=== PATIENT | female | born 1950 | race Two or more races ===

== ENCOUNTER 2024-07-19 18:57 | Emergency (ER) | payer MEDICARE, MEDICAID, SELFPAY ==
[2024-07-19 19:01] VITALS: BP 197/82; PULSE 77; RESP 19; TEMP 36.6; O2SAT 98; BMI 25.4
--- NOTE | 2024-07-19 19:16 | XR_ITS ---
Examination: AP chest single view Technique: AP portable semiupright chest single view Exam date and time: July 19, 20242010 hrs. Comparison July 10, 2024 Indications: Preop Findings: The film is rotated RPO Mild prominence cardiac contour Moderate ectasia thoracic aorta No pneumonia or pulmonary edema Prominent osteopenia Impression: No active disease
--- NOTE | 2024-07-19 19:16 | EKG_ITS ---
[facility] Test Date: 2024-07-19 Pat Name: KEYANA VALENCIA Department: Room: - Gender: Female Bundle Person: : 1950 Requested By: Santosh Clemons Order Number: [id number] Reading MD: Santosh Clemons Measurements Intervals Zoe Rate: 78 P: 55 CT: 181 QRS: 29 QRSD: 78 T: 70 QT: 398 QTc: 453 Interpretive Statements SINUS RHYTHM MODERATE ST DEPRESSION [0.05+ mV ST DEPRESSION] Compared to ECG 07/10/2024 21:04:12 No significant changes /store/S0/[id number].pdf
--- NOTE | 2024-07-19 19:16 | XR_ITS ---
Examination:Left hip AP, lateral, AP pelvis 3 views Technique: Hip AP lateral, AP pelvis, 3 views Exam date and time:July 19, 20242006 hrs. Indications: Patient fell today with injury to left hip, left hip pain Findings: Subtle sclerosis about the left subcapital region Right hip bones of the pelvis intact Impression: Recommend CT scan pelvis left hip follow-up to exclude left subcapital hip fracture.
--- NOTE | 2024-07-19 19:18 | XR_ITS ---
Examination: CT brain head without contrast. 2-D sagittal coronal reconstructions Date and time of exam:July 19, 2024 2044 hrs. Indications: Headache nausea today post ground-level fall CTDI: vol (mGy):47.6 DLP: (mGycm):989 Technique: Multiple CT axial sections of the brain have been obtained, 5 mm slice thickness. Contrast has not been administered. 2-D sagittal, coronal reconstructions have been obtained Low dose protocols were performed. One or more of the following dose reduction techniques were used; automated exposure control, adjustment of the mA and/or KV according to patient size, use of iterative reconstruction technique. Findings: No significant ventricular enlargement. 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 No mass effect or midline shift Basal cisterns are not remarkable. Fourth ventricle is midline. Cranial vault intact. Impression: Negative for acute hemorrhage, mass effect or midline shift
--- NOTE | 2024-07-19 19:18 | XR_ITS ---
Examination: CT cervical spine without contrast 2-D sagittal reconstructions 2-D coronal reconstructions 3-D reconstructions. Exam date and time:July 19, 2024 0846 hrs. Indications: Ground-level fall today with injury to the neck, neck pain CTDI:vol (mGy) 12.3 DLP: (mGycm) 282 Technique: Multiple 2 mm axial sections of the cervical spine have been obtained. The coronal and sagittal reconstructions have been obtained. 3-D reconstructions have been obtained. Low dose protocols were performed. One or more of the following dose reduction techniques were used; automated exposure control, adjustment of the mA and/or KV according to patient size, use of iterative reconstruction technique. Findings: Axial sections demonstrate intact base of the skull. C1 exhibit satisfactory relationship to the odontoid. No acute cervical vertebral body fracture seen. Alignment posterior spinous processes satisfactory. Abnormal sclerosis replacing the C3 vertebral body Impression: No acute cervical fracture. 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
--- NOTE | 2024-07-19 19:19 | EDNOTE_ITS ---
ED General RME/HPI General Chief complaint: Fall Stated complaint: LEFT BUTT CHEEK PAIN Time Seen by Provider: 07/19/24 19:16 Arrival date/time: 07/19/24 18:57 CC: Left hip pain HPI patient was backing up while in her garden and fell, causing immediate pain to the left hip. Patient is a history of diabetes hypertension takes a baby aspirin. Patient denies LOC or or ALOC. EMS reports stable vital signs and route unable to weight-bear on the left hip. Related Data Home Medications ?Medication ?Instructions ?Recorded ?Confirmed glipizide 5 mg tablet 10 mg PO QDAY #0 tabs 06/18/16 04/03/24 metoprolol succinate 25 mg capsule 25 mg PO QDAY 08/07/21 04/03/24 sprinkle, ext. release 24 hr aspirin 81 mg tablet,delayed 81 mg PO DAILY 12/20/21 04/03/24 release dulaglutide 0.75 mg/0.5 mL 0.75 mg subcut QWEEK 08/14/23 04/03/24 subcutaneous pen injector (Trulicity) gabapentin 100 mg capsule 300 mg PO Q8H 08/14/23 04/03/24 metformin 1,000 mg tablet,extended 750 mg PO QDAY 08/14/23 04/03/24 release 24hr (osmotic) omeprazole 40 mg capsule,delayed 40 mg PO QDAY 08/14/23 04/03/24 release apixaban 5 mg tablet (Eliquis) 5 mg PO QDAY 04/03/24 04/03/24 meclizine 25 mg tablet 25 mg PO BID PRN Dizziness Or 04/03/24 04/03/24 Vertigo pregabalin 25 mg capsule 25 mg PO TID 04/03/24 04/03/24 tobramycin 0.3 % eye drops 1 drp ophthalmic (eye) BID 04/03/24 04/03/24 Previous Rx's ?Medication ?Instructions ?Recorded amlodipine 10 mg tablet 10 mg PO QDAY #30 tabs 08/15/23 atorvastatin 40 mg tablet 40 mg PO QPM #30 tabs 08/15/23 lisinopril 40 mg tablet 40 mg PO QDAY 30 days #30 tabs 08/15/23 lidocaine 5 % topical patch 1 patch topical QDAY #15 ea 07/20/24 (Lidoderm) Allergies Allergy/AdvReac Type Severity Reaction Status Date / Time zolpidem AdvReac Severe I PASS Verified 08/13/23 18:57 OUT codeine AdvReac Mild NIGHTMARES Verified 08/13/23 18:57 Review of Systems Review of Systems Narrative Review of Systems: GEN: No fever, no chills, no weight loss EYES: No discharge, no visual changes, no pain HEENT: No ear pain, no congestion, no sore throat PULM: No shortness of breath, no cough, no congestion CV: No chest pain, no dyspnea on exertion, no palpitations GI: No nausea, no vomiting, no diarrhea, no pain, no constipation : No frequency, no urgency, no dysuria MUSC/SKEL: + joint pain, no back pain SKIN: No rash PSYCH: No hallucinations, no depression HEME/LYMPH: No easy bleeding or bruising tendencies NEURO: No weakness, no headache Past Medical History Past Medical History NEUROLOGIC: Positive Neurological Disorders and Cerebrovascular Accident CARDIAC: Positive Cardiac Disorders, Coronary Artery Disease, Hypercholesterolemia and Hypertension; Negative Congestive Heart Failure RESPIRATORY: Negative Chronic Obstructive Pulmonary Disease (COPD) GASTROINTESTINAL: Negative Gastrointestinal Disorders GENITOURINARY: Negative Genitourinary Disorders or Renal Disease ENDOCRINE: Positive Endocrine Disorders and Diabetes Mellitus Type 2; Negative Diabetes Mellitus Type 1 OTHER HISTORY: Positive Hospitalization and Falls; Negative Autoimmune Disease, Down Syndrome, Developmental Delay, MRSA, Clostridium Difficile or Cancer Family History FAMILY HISTORY: Positive Family Cardiac Disorders (sister heart disease); Negative Family Respiratory Disorders, Family Gastrointestinal Problems or Family Cancer Surgical History SURGICAL: Positive Coronary Stent Social History SMOKING STATUS: Never smoker SECOND HAND EXPOSURE: No ED Exam Narrative Physical exam: [General: Obese in moderate discomfort but not in any acute distress Head normocephalic, no step-offs hematomas induration ulcerations HEENT: Eyes: Pupils are PERRLA EOMs are intact no trapping, nose: No epistaxis rhinorrhea Mouth pink moist membranes uvula is midline. All the subsystems of HEENT are within acceptable limits Neck is supple nontender no tenderness with palpation full range of motion flexion extension and rotation. Chest equal chest rise nontender to palpation Respiratory: Clear to auscultation no wheezes crackles or rubs CV: Rate rhythm is regular no murmurs rubs or clicks Abdomen is distended secondary to body habitus soft nontender no masses positive bowel sounds all 4 quadrants Back: No CVA tenderness no spinous process tenderness from cervical spine thoracic and lumbar spine Skin: Intact no petechiae rash induration ulceration or crepitus Extremities: Tenderness with lateral palpation of the left hip no obvious extremity shortening. Moving all other extremities against resistance cap refill less than 2 seconds neurosensory intact Neuro: Awake alert oriented x3 Glascow coma 15 no focal deficits] Course Course Course Narrative: Reexamination of the patient at 2151, the patient continues to have left hip pain. Patient is unable to raise leg without significant pain I suspect a subcapital fracture that is not visible on plain film will follow-up with a CT. Quality Measures VTE prophylaxis Orders Category Date Time Status EKG (ED ONLY) *Do not use* NOW Care 07/19/24 19:16 Completed Saline [Insert IV] NOW Care 07/19/24 19:[address] cervical spine wo con Stat Exams 07/19/24 19:[address] head/brain wo con Stat Exams 07/19/24 19:[address] pelvis wo con Stat Exams 07/19/24 21:50 Completed EKG (ED Only) Stat Exams 07/19/24 19:16 Draft XR chest 1V Stat Exams 07/19/24 19:16 Completed XR hip LT w pelvis 2-3V Stat Exams 07/19/24 19:16 Completed B-Type Natriuretic Peptide Stat Lab 07/19/24 19:50 Completed CBC Stat Lab 07/19/24 19:50 Completed Comprehensive Metabolic Panel Stat Lab 07/19/24 19:50 Completed LDH (Lactate Dehydrogenase) Stat Lab 07/19/24 19:50 Completed Magnesium Stat Lab 07/19/24 19:50 Completed Partial Thromboplastin Time Stat Lab 07/19/24 19:50 Completed Prothrombin Time with INR Stat Lab 07/19/24 19:50 Completed Troponin I Stat Lab 07/19/24 19:50 Completed Acetaminophen Tab [Tylenol Tab] Med 07/20/24 00:17 Discontinued 650 mg PO X1 ONE Ketorolac Inj [Toradol Inj] Med 07/20/24 00:17 Discontinued 15 mg IVP X1 ONE Lidocaine 5% Patch Med 07/20/24 01:03 Discontinued 1 patch TOP X1 ONE Ondansetron Inj [Zofran Inj] Med 07/19/24 19:16 Discontinued 4 mg IV X1 ONE Sodium Chloride 0.9% 1000 ml [Ns] 1,000 ml Med 07/19/24 19:18 Discontinued IV 65 mls/hr fentaNYL INJ [Sublimaze Inj] Med 07/19/24 19:16 Discontinued 50 mcg IV X1 ONE Vital Signs Vital signs: Vital Signs Temperature 97.9 F 07/19/24 19:01 Pulse Rate 77 07/19/24 19:01 Respiratory Rate 19 07/19/24 19:01 Blood Pressure 197/82 H 07/19/24 19:01 Pulse Oximetry (%) 98 07/19/24 19:01 Oxygen Delivery Method Room Air 07/19/24 19:01 [facility] Patient data External records reviewed:: [facility] previous records and EMS form Clinical information provided by:: patient and EMS Social determinants that could affect healthcare access:: none Patient has the following chronic illnesses:: Solution How is presenting disease/condition affected by chronic disease/condition?: u neffected by Evaluation data The following diagnostics were reviewed and interpreted by me:: lab results, radiology exam(s) and EKG tracing(s) Lab and/or radiology exams considered but not ordered:: EKG performed at 1958 shows ventricular rate of 78 CA interval 1481 QRS S at 78 QTc of 431 this is sinus rhythm when compared to an old EKG of May 12, 2024 there are no significant changes. Interpretation Summary: CBC shows no acute leukocytosis anemia thrombocytopenia CMP shows no electrolyte imbalances renal impairment transaminitis or T. bili elevation CT of the hip is negative Urine is negative Medications Medications considered but not ordered:: None Medication administrations:: Medication Administration History Discontinued Medications Acetaminophen (Acetaminophen 325 Mg Tablet) 650 mg PO X1 ONE Stop: 07/20/24 00:18 Last Admin: 07/20/24 00:30 Dose: 650 mg Documented By: CCT Fentanyl Citrate (Fentanyl Cit Inj 50 Mcg/Ml Amp 2ml) 50 mcg IV X1 ONE Stop: 07/19/24 19:17 Last Admin: 07/19/24 19:58 Dose: 50 mcg Documented By: CCT Sodium Chloride (Ns) 1,000 mls @ 65 mls/hr IV .[id number] Stop: 08/18/24 19:17 Last Admin: 07/19/24 21:04 Dose: 65 mls/hr Documented By: CCT Ketorolac Tromethamine (Ketorolac Inj 30 Mg/Ml Vial) 15 mg IVP X1 ONE Stop: 07/20/24 00:18 Last Admin: 07/20/24 00:30 Dose: 15 mg Documented By: CCT Lidocaine (Lidocaine 5% 1 Patch) 1 patch TOP X1 ONE Stop: 07/20/24 01:04 Last Admin: 07/20/24 01:08 Dose: 1 patch Documented By: CCT Ondansetron HCl (Ondansetron Inj 2 Mg/Ml Inj 2 Ml) 4 mg IV X1 ONE; Protocol Stop: 07/19/24 19:17 Last Admin: 07/19/24 19:57 Dose: 4 mg Documented By: CCT None Consultations Consultation(s) initiated? (list below): Yes Consultation #1 (Physician, Specialty, Details): Yoko Diagnosis Differential Diagnosis ED Complaint MDM: Left hip fracture acetabular fracture femur fracture Most likely diagnosis given after review of the tests above:: Impacted subcapital fracture Admission Indicated Admission indicated?: indicated Explain why admission is indicated or not indicated:: Require surgical intervention Admission Request Was there a request for admission?: No Disposition Plan Disposition Plan: Admit Medical Decision Making Differential Diagnosis Differential Diagnosis: Left hip fracture acetabular fracture femur fracture Lab Data 07/19/24 19:50 07/19/24 19:50 Labs: Lab Results 07/19/24 Range/Units 19:50 WBC 14.7 H (3.6-11.0) Thou/mm3 RBC 4.68 (4.00-5.20) Miln/mm3 Hgb 12.2 (12.0-16.0) g/dL Hct 36.1 (36.0-46.0) % MCV 77 L (80-100) fL MCH 26.1 (25.0-35.0) pg MCHC 33.8 (31.0-37.0) g/dl RDW Std Deviation 38.0 (36.4-46.3) fL Plt Count 284 D (140-440) Thou/mm3 Neut % (Auto) 69 (37-80) % Lymph % (Auto) 22 (10-50) % Cooper % (Auto) 6 (0-12) % Eos % (Auto) 1 (0-10) % Baso % (Auto) 1 (0-2.5) % Neut # (Auto) 10.2 H (1.8-7.7) Thou/mm3 Lymph # (Auto) 3.2 (1.0-4.8) Thou/mm3 Cooper # (Auto) 0.9 H (0.0-0.8) Thou/mm3 Eos # (Auto) 0.2 (0.0-0.5) Thou/mm3 Baso # (Auto) 0.1 (0.0-0.2) Thou/mm3 Immature Gran # (Auto) 0.15 H (0.00-0.00) Thou/mm3 Absolute Nucleated RBC 0.00 (0.00-0.00) Thou/mm3 Immature Gran % 1 H (0-0) % Nucleated RBC % 0 (0) /100 WBC PT 10.6 (9.0-12.2) Seconds INR 1.0 (0.9-1.3) APTT 23.8 (22.0-36.0) Seconds Sodium 132 L (136-145) mMol/L Potassium 3.9 (3.4-5.1) mMol/L Chloride 101 (98-107) mMol/L Carbon Dioxide 25.3 (20.0-31.0) mMol/L Anion Gap 6 L (7-16) BUN 16 (9-23) mg/dL Creatinine 0.8 (0.6-1.3) mg/dL Estim Creat Clear Calc 50.3 L (>60) mL/min eGFR > 60 (60 - ) See Note BUN/Creatinine Ratio 20 (12-20) Ratio Glucose 225 H (74-106) mg/dL Calculated Osmolality 272 L (275-295) Calcium 9.7 (8.3-10.6) mg/dL Corrected Calcium 9.7 (8.5-10.1) mg/dL Magnesium 1.8 (1.6-2.6) mg/dL Total Bilirubin 0.3 (0.3-1.2) mg/dL AST 17 (0-34) U/L ALT 14 (10-49) U/L Alkaline Phosphatase 109 (46-116) U/L Lactate Dehydrogenase 187 (120-246) U/L Troponin I < 0.020 (0.0-0.045) ng/mL B-Natriuretic Peptide 47 (0-100) pg/mL Total Protein 7.3 (5.7-8.2) gm/dL Albumin 4.5 (3.4-4.8) gm/dL Globulin 2.8 (2.3-3.5) gm/dL Albumin/Globulin Ratio 1.6 (1.2-2.2) Discharge Plan Plan Patient Disposition: HOME (Self Care) Prescriptions/Referrals Prescriptions/Med Rec: New lidocaine [Lidoderm] 5 % adhesive patch,medicated 1 patch topical QDAY Qty: 15 0RF Rx Instructions: leave on most painful area for up to 12 hrs No Action glipizide 5 MG tablet 10 mg PO QDAY Qty: 0 Rx Instructions: Take in the morning before meals metoprolol succinate 25 mg Capsule,Sprinkle,Er 24hr 25 mg PO QDAY aspirin 81 mg Tablet,Delayed Release (Dr/Ec) 81 mg PO DAILY omeprazole 40 mg Capsule,Delayed Release(Dr/Ec) 40 mg PO QDAY metformin 1,000 mg Tablet Extended Release 24 Hr 750 mg PO QDAY Trulicity 0.75 mg/0.5 mL Pen Injector 0.75 mg SUBCUT QWEEK Rx Instructions: wednesdays gabapentin 100 mg Capsule 300 mg PO Q8H lisinopril 40 mg tablet 40 mg PO QDAY 30 Days Qty: 30 3RF atorvastatin 40 mg tablet 40 mg PO QPM Qty: 30 3RF amlodipine 10 mg tablet 10 mg PO QDAY Qty: 30 3RF meclizine 25 mg Tablet 25 mg PO BID PRN (Reason: Dizziness Or Vertigo) tobramycin 0.3 % Drops 1 drp OPHTHALMIC (EYE) BID pregabalin 25 mg Capsule 25 mg PO TID Eliquis 5 mg tablet 5 mg PO QDAY Referrals: No Primary/Family,Physician [Referring Provider] - In 1 week Problem List Clinical Impression: Hematoma of muscle Patient/Caregiver Discharge Instructions Education Materials: ED Hematoma Additional Instructions: You have a deep hematoma/bruise of your buttocks muscle. This will resolve on its own with time. You can use ice for the next 2 days and then changed to warm compresses. Topical pain patches have been prescribed at the pharmacy for you. Follow-up with your primary care doctor in 2 to 3 days for recheck. You can return to the emergency department sooner symptoms worsen or if you notice any new, concerning issues. Print Language: Korean Stand Alone Forms: Janet Award Info., Patient Portal Info Letter
[2024-07-19 19:45] VITALS: PULSE 83; O2SAT 97
[2024-07-19] MEDS: ONDANSETRON INJ 2 MG/ML INJ 2 ML 4 MG IV (19:57)
[2024-07-19] MEDS: fentaNYL CIT INJ 50 mCg/ML AMP 2ML IV (19:58)
[2024-07-19 20:19] LABS: Basophils # (Auto) 0.1 Thou/mm3 (0.0-0.2); Basophils % (Auto) 1 % (0-2.5); Eosinophils # (Auto) 0.2 Thou/mm3 (0.0-0.5); Eosinophils % (Auto) 1 % (0-10); Hematocrit 36.1 % (36.0-46.0); Hemoglobin 12.2 g/dL (12.0-16.0); Immature Granulocytes % (Auto) 1 % (0-0); Immature Granulocytes Auto 0.15 Thou/mm3 (0.00-0.00); Lymphocytes # (Auto) 3.2 Thou/mm3 (1.0-4.8); Lymphocytes % (Auto) 22 % (10-50); Mean Corpuscular HGB Conc 33.8 g/dl (31.0-37.0); Mean Corpuscular Hemoglobin 26.1 pg (25.0-35.0); Mean Corpuscular Volume 77 fL (80-100); Monocytes # (Auto) 0.9 Thou/mm3 (0.0-0.8); Monocytes % (Auto) 6 % (0-12); Neutrophils # (Auto) 10.2 Thou/mm3 (1.8-7.7); Neutrophils % (Auto) 69 % (37-80); Nucleated Red Blood Cell % 0 /100 WBC (0); Platelet Count 284 Thou/mm3 (140-440); Red Blood Count 4.68 Miln/mm3 (4.00-5.20); White Blood Count 14.7 Thou/mm3 (3.6-11.0)
[2024-07-19 20:35] LABS: Partial Thromboplastin Time 23.8 Seconds (22.0-36.0); Prothrombin Time 10.6 Seconds (9.0-12.2)
[2024-07-19 20:40] LABS: B-Type Natriuretic Peptide 47 pg/mL (0-100)
[2024-07-19 20:41] LABS: Alanine Aminotransferase 14 U/L (10-49); Albumin, Serum 4.5 gm/dL (3.4-4.8); Albumin/Globulin Ratio 1.6 (1.2-2.2); Alkaline Phosphatase 109 U/L (46-116); Anion Gap 6 (7-16); Aspartate Amino Transferase 17 U/L (0-34); BUN/Creatinine Ratio 20 Ratio (12-20); Bilirubin,Total 0.3 mg/dL (0.3-1.2); Blood Urea Nitrogen 16 mg/dL (9-23); Calcium 9.7 mg/dL (8.3-10.6); Calcium (Corrected) 9.7 mg/dL (8.5-10.1); Carbon Dioxide 25.3 mMol/L (20.0-31.0); Chloride 101 mMol/L (98-107); Creatinine (Component) 0.8 mg/dL (0.6-1.3); Estimated Creatinine Clearance 50.3 mL/min (>60); Globulin 2.8 gm/dL (2.3-3.5); Glucose 225 mg/dL (74-106); LDH (Lactate Dehydrogenase) 187 U/L (120-246); Magnesium 1.8 mg/dL (1.6-2.6); Osmolality,Calculated 272 (275-295); Potassium 3.9 mMol/L (3.4-5.1); Sodium 132 mMol/L (136-145); Total Protein 7.3 gm/dL (5.7-8.2); Troponin I < 0.020 ng/mL (0.0-0.045); eGFR > 60 See Note
[2024-07-19] MEDS: SODIUM CHLORIDE 0.9% 1000 ML 1,000 ML 65 ML IV (21:04)
[2024-07-19 21:10] VITALS: BP 186/69; PULSE 75; RESP 18; TEMP 36.8; O2SAT 94
--- NOTE | 2024-07-19 21:50 | XR_ITS ---
Examination: CT pelvis without intravenous contrast. 2-D sagittal and coronal reconstructions. Date and time of exam:July 19, 2024 11:51 PM Indications: Onset left hip pain today, patient fell today with injury to the left hip CTDI: vol (mGy) :5.93 DLP: (mGycm) : 211 Technique: Multiple 3 mm axial sections of the pelvis have been obtained with the 64 slice high resolution scanner. 2-D sagittal and coronal reconstructions. Low dose protocols were performed. One or more of the following dose reduction techniques were used; automated exposure control, adjustment of the mA and/or KV according to patient size, use of iterative reconstruction technique. Findings: Heavy vascular calcification Intact urinary bladder No free fluid in the pelvis No acute fracture Hematoma intramuscular, gluteal on the left, 4.7 x 3.1 x 7.1 cm Impression: Intramuscular left gluteal hematoma 4.7 x 3.1 x 7.1 cm No acute hip fracture depicted If left hip pain persists, recommend MRI left hip without contrast follow-up
--- NOTE | 2024-07-19 23:11 | PD.EDADDENDU ---
Emergency Room Addendum Addendum Narrative: 2300: Care assumed from Santosh Luther NP, the previous shift emergency physician. Past medical, surgical, social and family history reviewed. Vitals and home medications reviewed. I will assume the care of the patient at this time, pending . Please refer to the emergency department record for history and examination from initial visit. Physical exam by me shows she has a noticeable large ecchymosis/hematoma over her left gluteus, she has no pain upon palpation of her left hip joint. I placed ice over the hematoma and a Lidoderm patch. She was able to ambulate in the emergency department with mild limitation due to pain. She'?ll be discharged conservative for gluteal hematoma. Reviewed all results, analysis, treatment plan and patient is amenable discharge. Strict return precautions reviewed and patient was discharged stable condition. MD Attestation MD Attestation Scribe Attestation: I, Jamal Iqbal, am scribing for and in the presence of Dr. Wilcox. Provider Notation: Although this document has been carefully reviewed, there may still be some phonetic and other typographical errors. These errors are purely grammatical due to imperfections in the software program and should not be construed in any way to compromise the substance of the patient's medical care during this visit.
[2024-07-20] MEDS: ACETAMINOPHEN 325 MG TABLET 650 MG PO (00:30)
[2024-07-20] MEDS: KETOROLAC INJ 30 MG/ML VIAL 15 MG IVP (00:30)
[2024-07-20 00:35] VITALS: BP 161/67; PULSE 87; RESP 18; TEMP 36.9; O2SAT 95
[2024-07-20] MEDS: LIDOCAINE 5% 1 PATCH TOP (01:08)
--- NOTE | 2024-07-20 01:19 | PRELIM_ITS ---
CT scan of the pelvis without intravenous contrast. Axial sections with sagittal and coronal reformat s were obtained. July 19, 2024 at 2351 hoursClinical History: Left hip pain.Comparison: No prior study is available for comparison. Findings:There is no fracture or malalignment. No joint effusion i s seen. Diverticulosis of the colon.Status post hysterectomy.Fecal loading.Vascular calcifications.Le ft gluteal intramuscular hematoma, measuring 5.9 x 3.6 x 6.1 cm.Impression:No fracture or dislocation .Left gluteal intramuscular hematoma. Report Electronically Signed By: Simon Wiley 07/20/2024 1: 18:26 AM [EST]
--- NOTE | 2024-07-20 01:50 | PC.NURSE ---
Pt able to get out bed with assist, was able to walk from [facility] to the entrance of room with 1 person assist. Pt states she does use a walker at home. Dr. Wilcox made aware. Per Md, will discharge home.
[2024-07-20 02:25] VITALS: BP 162/63; PULSE 82; RESP 19; TEMP 36.7; O2SAT 95
== END 2024-07-20 02:25 | disposition home or self-care (01) ==
PROVIDERS: Registered Nurse General Practice; Emergency Provider Emergency Medicine; PCP Physician Assistant
DX: S30.0XXA Contusion of lower back and pelvis, initial encounter (principal); S19.9XXA Unspecified injury of neck, initial encounter; S79.912A Unspecified injury of left hip, initial encounter; R51.9 Headache, unspecified; R11.0 Nausea; W18.30XA Fall on same level, unspecified, initial encounter
CPT/HCPCS: 36415; 70450; 71045; 72125; 72192; 73502; 80053; 80307; 81001; 83615; 83735; 83880; 84484; 85025; 85610; 85730; 93005; 96374; 99284; J1885; J2405; J3010; J7030; A9270

== ENCOUNTER 2024-09-21 18:19 | Emergency (ER) | payer MEDICARE, MEDICAID, SELFPAY ==
[2024-09-21] VITALS (10 sets, daily range): BP systolic 153–217; BP diastolic 62–92; PULSE 66–102; RESP 13–20; TEMP 36.9; O2SAT 94–98; BMI 27.4
--- NOTE | 2024-09-21 18:26 | EKG_ITS ---
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
--- NOTE | 2024-09-21 18:47 | EDNOTE_ITS ---
ED General RME/HPI General Chief complaint: Headache Stated complaint: HEADACHE Time Seen by Provider: 09/21/24 18:32 Arrival date/time: 09/21/24 18:19 RME / HPI RME / HPI narrative: [facility] complaint: Headache, high blood pressure at home HPI: Patient is a 44-year-old female with past medical history of essential hypertension, hyperlipidemia, peripheral neuropathy, type 2 insulin-dependent diabetes, bilateral thyroid nodules, urge incontinence and bilateral severe PAD s/p peripheral angiography, who presented to the ER with new onset occipital headache 8/10 in severity, dull and achy in nature and constant. Patient's headache started around 4 PM today, and did not improve despite adequate oral hydration. She states that when she checks her blood pressure at home her systolic was >220, so she decided to call EMS. She is otherwise compliant with medications, and endorses taking all home medications today. Patient denies any fevers chills or other systemic symptoms. She does have a mild cough, but denies any shortness of breath. She does not have any cardiac symptoms, denies palpitations, and has no cardiac history. Medication list: Aspirin 81 mg Atorvastatin 40 mg Amlodipine 10 mg Lisinopril 40 mg Metoprolol XL 25 mg Glipizide 5 mg Trulicity 0.75 mg weekly Metformin 750 mg daily Gabapentin 300 mg 3 times daily 81 mg daily Omeprazole 40 mg daily Tobramycin eyedrops Past surgical history: Cholecystectomy in her 30s Allergies: Zolipem - confusion Codeine - hallucinations Social history: Marital?Status:? Tobacco?Use:?Denies ETOH?Use:?Denies Drug?Note:?Denies Social?History?Note:?Lives?at home with her family, endorses that her sons take care of Family history: Sister? pacemaker for heart block. Denies any family history of sudden cardiac or strokes. Related Data Home Medications ?Medication ?Instructions ?Recorded ?Confirmed glipizide 5 mg tablet 10 mg PO QDAY #0 tabs 06/18/16 04/03/24 metoprolol succinate 25 mg capsule 25 mg PO QDAY 08/07/21 04/03/24 sprinkle, ext. release 24 hr aspirin 81 mg tablet,delayed 81 mg PO DAILY 12/20/21 04/03/24 release dulaglutide 0.75 mg/0.5 mL 0.75 mg subcut QWEEK 08/14/23 04/03/24 subcutaneous pen injector (Trulicity) gabapentin 100 mg capsule 300 mg PO Q8H 08/14/23 04/03/24 metformin 1,000 mg tablet,extended 750 mg PO QDAY 08/14/23 04/03/24 release 24hr (osmotic) omeprazole 40 mg capsule,delayed 40 mg PO QDAY 08/14/23 04/03/24 release apixaban 5 mg tablet (Eliquis) 5 mg PO QDAY 04/03/24 04/03/24 meclizine 25 mg tablet 25 mg PO BID PRN Dizziness Or 04/03/24 04/03/24 Vertigo pregabalin 25 mg capsule 25 mg PO TID 04/03/24 04/03/24 tobramycin 0.3 % eye drops 1 drp ophthalmic (eye) BID 04/03/24 04/03/24 Previous Rx's ?Medication ?Instructions ?Recorded amlodipine 10 mg tablet 10 mg PO QDAY #30 tabs 08/15/23 atorvastatin 40 mg tablet 40 mg PO QPM #30 tabs 08/15/23 lisinopril 40 mg tablet 40 mg PO QDAY 30 days #30 tabs 08/15/23 lidocaine 5 % topical patch 1 patch topical QDAY #15 ea 07/20/24 (Lidoderm) Allergies Allergy/AdvReac Type Severity Reaction Status Date / Time zolpidem AdvReac Severe I PASS Verified 08/13/23 18:57 OUT codeine AdvReac Mild NIGHTMARES Verified 08/13/23 18:57 Review of Systems Review of Systems Narrative Review of Systems: GENERAL: Denies fevers/chills or diaphoresis. HEENT: endorses posterior headache, no visual/hearing changes. Denies nasal discharge. NEURO: Denies unusual weakness or difficulty speaking. CARDIO: Denies chest pain or palpitations. PULM: Denies SOB, coughing, or wheezing. GI: Denies abdominal pain, N/V/C/D. Reports having BMs URO: Denies burning/itching/pain/urinary changes. PANTRY ATTENDANT: Denies menstrual changes, hot flashes. MSK/EXT/SKIN: Denies joint/skeletal/muscle pain, issues/changes in upper or lower extremities, itchiness, or superficial pain. PSYCH: Cooperative, pleasant mood & affect. The rest of the review of systems is otherwise negative. ED Exam Narrative Physical exam: Constitutional Alert, oriented x4 , BP 217/92 HEENT Vision grossly intact. Patent nares. Trachea midline. Occipital tenderness/headcahe Respiratory Chest normal on inspection and clear to auscultation bilaterally. Cardiovascular S1 and S2 audible, RRR. No murmurs or carotid bruit. No gross JVD. Abdominal Soft and non tender to palpation in all quadrants. BS + Genitourinary No bladder tenderness, no flank pain. Normal to palpation. Musculoskeletal Extremities tone within normal limits. No LE edema. Neurological CN II - XII grossly intact. Extremity motor and sensation grossly intact. Skin Warm, dry and intact. No apparent lesions. Psychiatric Patient has a good affect, is cooperative. Course Quality Measures VTE prophylaxis Orders Category Date Time Status EKG (ED ONLY) *Do not use* NOW Care 09/21/24 18:26 Completed Alford [Urinary Catheter] QS Care 09/21/24 18:26 Active Insert IV NOW Care 09/21/24 18:26 Active Miscellaneous Nursing Order NOW Care 09/21/24 20:33 Active CXRP [XR chest 1V portable] Stat Exams 09/21/24 20:31 Completed EKG (ED Only) Stat Exams 09/21/24 18:26 Draft CBC Stat Lab 09/21/24 19:26 Completed CMP [Comprehensive Metabolic Panel] Stat Lab 09/21/24 19:26 Completed INR [Prothrombin Time with INR] Stat Lab 09/21/24 19:26 Completed Influenza A & B Rapid Panel Stat Lab 09/21/24 20:32 Ordered Lactic Acid [Lactate (Lactic Acid)] Stat Lab 09/21/24 20:59 Completed PTT [Partial Thromboplastin Time] Stat Lab 09/21/24 19:26 Completed Procalcitonin Stat Lab 09/21/24 20:57 Completed Urinalysis Stat Lab 09/21/24 18:26 Ordered Celecoxib [CeleBREX] Med 09/21/24 21:32 Discontinued 100 mg PO X1 ONE Labetalol IV [Trandate IV] Med 09/21/24 18:33 Discontinued 10 mg IVP X1 ONE Labetalol IV [Trandate IV] Med 09/21/24 20:02 Discontinued 20 mg IVP X1 ONE Morphine Inj Med 09/21/24 21:39 Discontinued 2 mg IVP X1 ONE Ondansetron Inj [Zofran Inj] Med 09/21/24 23:30 Discontinued 4 mg IV X1 ONE Reevaluation(s) Reevaluation #1: 22:00 Bp imporoving after IV Labetalol 10mg x1 Headcahe also resolved with Morphine 2mg x1 Vital Signs Vital signs: Vital Signs Temperature 98.5 F 09/21/24 18:27 Pulse Rate 85 09/21/24 18:27 Respiratory Rate 18 09/21/24 18:27 Blood Pressure 217/92 H 09/21/24 18:27 Pulse Oximetry (%) 94 L 09/21/24 18:27 Oxygen Delivery Method Room Air 09/21/24 18:27 [facility] Patient data External records reviewed:: [facility] previous records Clinical information provided by:: patient and EMS Social determinants that could affect healthcare access:: none Patient has the following chronic illnesses:: essential hypertension, hyperlipidemia, peripheral neuropathy, type 2 insulin- dependent diabetes, bilateral thyroid nodules, urge incontinence and bilateral severe PAD s/p peripheral angiography How is presenting disease/condition affected by chronic disease/condition?: c aused by Evaluation data The following diagnostics were reviewed and interpreted by me:: lab results, radiology exam(s) and EKG tracing(s) Lab and/or radiology exams considered but not ordered:: CT Head [patient has no deficitis, therefore not ordered] Interpretation Summary: Presented with headaches, likely secondary to hypertensive urgency Medications Medications considered but not ordered:: Hydralazine IV Medication administrations:: Medication Administration History Discontinued Medications Celecoxib (Celecoxib 100 Mg Capsule) 100 mg PO X1 ONE Stop: 09/21/24 21:33 Last Admin: 09/21/24 21:40 Dose: Not Given Documented By: KD Non-Admin Reason: Discontinued Labetalol HCl (Labetalol Inj 5 Mg/Ml Vial 20 Ml) 10 mg IVP X1 ONE Stop: 09/21/24 18:34 Last Admin: 09/21/24 21:03 Dose: 10 mg Documented By: CHRISTOPHER Labetalol HCl (Labetalol Inj 5 Mg/Ml Vial 20 Ml) 20 mg IVP X1 ONE Stop: 09/21/24 20:03 Last Admin: 09/21/24 23:44 Dose: Not Given Documented By: CHRISTOPHER Non-Admin Reason: Discontinued Morphine Sulfate (Morphine Sulf Inj 10 Mg/Ml Vial) 2 mg IVP X1 ONE Stop: 09/21/24 21:40 Last Admin: 09/21/24 21:43 Dose: 2 mg Documented By: CHRISTOPHER Ondansetron HCl (Ondansetron Inj 2 Mg/Ml Inj 2 Ml) 4 mg IV X1 ONE; Protocol Stop: 09/21/24 23:31 Last Admin: 09/21/24 23:34 Dose: 4 mg Documented By: CHRITSOPHER Continue Consultations Consultation(s) initiated? (list below): No Consultation #1 (Physician, Specialty, Details): None Diagnosis Differential Diagnosis ED Complaint MDM: Migraine Most likely diagnosis given after review of the tests above:: Hypertensive urgency Admission Indicated Admission indicated?: not indicated Explain why admission is indicated or not indicated:: Hypertensive urgency resolved Admission Request Was there a request for admission?: No Disposition Plan Disposition Plan: Discharge Discharge Attestation Discharge Attestation: The patient and all family members were given an opportunity to ask questions and understood the discharge instructions. Discharge instructions specifically effects, indications for sooner follow up or return to the emergency department, and the expected course of current diagnosis. Patient condition: Stable Medical Decision Making MDM Narrative MDM Narrative: Patient is a 74 year old female who was admitted for posterior headache and hypertensive urgency. SBP 240 --> 153 with IV Labetalol 10mg x1. Headache resolved with Morphine 2mg x1. Patient is stable for discharge. Plan: Will likely need outpatient optimization of BP medications. Differential Diagnosis Differential Diagnosis: Migraine Lab Data 09/21/24 19:26 09/21/24 19:26 Labs: Lab Results 09/21/24 09/21/24 09/21/24 Range/Units 19:26 20:57 20:59 WBC 13.9 H (3.6-11.0) Thou/mm3 RBC 4.79 (4.00-5.20) Miln/mm3 Hgb 12.3 (12.0-16.0) g/dL Hct 36.9 (36.0-46.0) % MCV 77 L (80-100) fL MCH 25.7 (25.0-35.0) pg MCHC 33.3 (31.0-37.0) g/dl RDW Std Deviation 38.5 (36.4-46.3) fL Plt Count 218 (140-440) Thou/mm3 Neut % (Auto) 73 (37-80) % Lymph % (Auto) 17 (10-50) % Grundy % (Auto) 8 (0-12) % Eos % (Auto) 1 (0-10) % Baso % (Auto) 1 (0-2.5) % Neut # (Auto) 10.1 H (1.8-7.7) Thou/mm3 Lymph # (Auto) 2.4 (1.0-4.8) Thou/mm3 Grundy # (Auto) 1.1 H (0.0-0.8) Thou/mm3 Eos # (Auto) 0.1 (0.0-0.5) Thou/mm3 Baso # (Auto) 0.1 (0.0-0.2) Thou/mm3 Immature Gran # (Auto) 0.19 H (0.00-0.00) Thou/mm3 Absolute Nucleated RBC 0.00 (0.00-0.00) Thou/mm3 Immature Gran % 1 H (0-0) % Nucleated RBC % 0 (0) /100 WBC PT 10.9 (9.0-12.2) Seconds INR 1.0 (0.9-1.3) APTT 25.4 (22.0-36.0) Seconds Sodium 135 L (136-145) mMol/L Potassium 3.6 (3.4-5.1) mMol/L Chloride 99 (98-107) mMol/L Carbon Dioxide 27.8 (20.0-31.0) mMol/L Anion Gap 8 (7-16) BUN 14 (9-23) mg/dL Creatinine 0.8 (0.6-1.3) mg/dL Estim Creat Clear Calc 49.3 L (>60) mL/min eGFR > 60 (60 - ) See Note BUN/Creatinine Ratio 18 (12-20) Ratio Glucose 148 H (74-106) mg/dL Calculated Osmolality 273 L (275-295) Lactic Acid 1.0 (0.4-2.0) mMol/L Calcium 9.7 (8.3-10.6) mg/dL Corrected Calcium 9.7 (8.5-10.1) mg/dL Total Bilirubin 0.4 (0.3-1.2) mg/dL AST 16 (0-34) U/L ALT 15 (10-49) U/L Alkaline Phosphatase 112 (46-116) U/L Total Protein 7.5 (5.7-8.2) gm/dL Albumin 4.8 (3.4-4.8) gm/dL Globulin 2.7 (2.3-3.5) gm/dL Albumin/Globulin Ratio 1.8 (1.2-2.2) Procalcitonin 0.08 (0.0-0.49) ng/ml Discharge Plan Plan Patient Disposition: HOME (Self Care) Patient condition on transfer: Stable Prescriptions/Referrals Prescriptions/Med Rec: No Action glipizide 5 MG tablet 10 mg PO QDAY Qty: 0 Rx Instructions: Take in the morning before meals metoprolol succinate 25 mg Capsule,Sprinkle,Er 24hr 25 mg PO QDAY aspirin 81 mg Tablet,Delayed Release (Dr/Ec) 81 mg PO DAILY omeprazole 40 mg Capsule,Delayed Release(Dr/Ec) 40 mg PO QDAY metformin 1,000 mg Tablet Extended Release 24 Hr 750 mg PO QDAY Trulicity 0.75 mg/0.5 mL Pen Injector 0.75 mg SUBCUT QWEEK Rx Instructions: wednesdays gabapentin 100 mg Capsule 300 mg PO Q8H lisinopril 40 mg tablet 40 mg PO QDAY 30 Days Qty: 30 3RF atorvastatin 40 mg tablet 40 mg PO QPM Qty: 30 3RF amlodipine 10 mg tablet 10 mg PO QDAY Qty: 30 3RF meclizine 25 mg Tablet 25 mg PO BID PRN (Reason: Dizziness Or Vertigo) tobramycin 0.3 % Drops 1 drp OPHTHALMIC (EYE) BID pregabalin 25 mg Capsule 25 mg PO TID Eliquis 5 mg tablet 5 mg PO QDAY lidocaine [Lidoderm] 5 % adhesive patch,medicated 1 patch topical QDAY Qty: 15 0RF Rx Instructions: leave on most painful area for up to 12 hrs Problem List Clinical Impression: Headache, Hypertensive urgency Patient/Caregiver Discharge Instructions Discharge Activity: resume usual activities Print Language: Samoan Stand Alone Forms: Janet Award Info., Patient Portal Info Letter
[2024-09-21 19:53] LABS: Basophils # (Auto) 0.1 Thou/mm3 (0.0-0.2); Basophils % (Auto) 1 % (0-2.5); Eosinophils # (Auto) 0.1 Thou/mm3 (0.0-0.5); Eosinophils % (Auto) 1 % (0-10); Hematocrit 36.9 % (36.0-46.0); Hemoglobin 12.3 g/dL (12.0-16.0); Immature Granulocytes % (Auto) 1 % (0-0); Immature Granulocytes Auto 0.19 Thou/mm3 (0.00-0.00); Lymphocytes # (Auto) 2.4 Thou/mm3 (1.0-4.8); Lymphocytes % (Auto) 17 % (10-50); Mean Corpuscular HGB Conc 33.3 g/dl (31.0-37.0); Mean Corpuscular Hemoglobin 25.7 pg (25.0-35.0); Mean Corpuscular Volume 77 fL (80-100); Monocytes # (Auto) 1.1 Thou/mm3 (0.0-0.8); Monocytes % (Auto) 8 % (0-12); Neutrophils # (Auto) 10.1 Thou/mm3 (1.8-7.7); Neutrophils % (Auto) 73 % (37-80); Nucleated Red Blood Cell % 0 /100 WBC (0); Platelet Count 218 Thou/mm3 (140-440); RDW Standard Deviation 38.5 fL (36.4-46.3); Red Blood Count 4.79 Miln/mm3 (4.00-5.20); White Blood Count 13.9 Thou/mm3 (3.6-11.0)
[2024-09-21 19:54] LABS: Alanine Aminotransferase 15 U/L (10-49); Albumin, Serum 4.8 gm/dL (3.4-4.8); Albumin/Globulin Ratio 1.8 (1.2-2.2); Alkaline Phosphatase 112 U/L (46-116); Anion Gap 8 (7-16); Aspartate Amino Transferase 16 U/L (0-34); BUN/Creatinine Ratio 18 Ratio (12-20); Bilirubin,Total 0.4 mg/dL (0.3-1.2); Blood Urea Nitrogen 14 mg/dL (9-23); Calcium 9.7 mg/dL (8.3-10.6); Calcium (Corrected) 9.7 mg/dL (8.5-10.1); Carbon Dioxide 27.8 mMol/L (20.0-31.0); Chloride 99 mMol/L (98-107); Creatinine (Component) 0.8 mg/dL (0.6-1.3); Estimated Creatinine Clearance 49.3 mL/min (>60); Globulin 2.7 gm/dL (2.3-3.5); Glucose 148 mg/dL (74-106); Osmolality,Calculated 273 (275-295); Potassium 3.6 mMol/L (3.4-5.1); Sodium 135 mMol/L (136-145); Total Protein 7.5 gm/dL (5.7-8.2); eGFR > 60 See Note
[2024-09-21 20:01] LABS: Partial Thromboplastin Time 25.4 Seconds (22.0-36.0); Prothrombin Time 10.9 Seconds (9.0-12.2)
--- NOTE | 2024-09-21 20:31 | XR_ITS ---
Examination: AP chest single view Technique one AP portable upright chest single view Exam date and time: August 21, [id number] hrs. Indications: Onset coughing today. Findings: Mild prominence left ventricle Mild accentuation bronchovascular markings. No lobar pneumonia or pulmonary edema Moderate osteopenia Impression: Mild bronchitis pattern
[2024-09-21] MEDS: LABETALOL INJ 5 MG/ML VIAL 20 ML 10 MG IVP (21:03)
[2024-09-21] MEDS: MORPHINE SULF INJ 10 MG/ML VIAL 2 MG IVP (21:43)
[2024-09-21 22:18] LABS: Procalcitonin 0.08 ng/ml (0.0-0.49)
[2024-09-21] MEDS: ONDANSETRON INJ 2 MG/ML INJ 2 ML 4 MG IV (23:34)
[2024-09-22] VITALS: BP 160/65; PULSE 66; RESP 22; O2SAT 91
== END 2024-09-22 00:18 | disposition home or self-care (01) ==
LOC: SERX 09-22 00:32
PROVIDERS: Student in an Organized Health Care Education/Training Program; Emergency Provider Emergency Medicine
DX: R51.9 Headache, unspecified (principal); I16.0 Hypertensive urgency; I10 Essential (primary) hypertension; E78.5 Hyperlipidemia, unspecified; E11.42 Type 2 diabetes mellitus with diabetic polyneuropathy; E11.51 Type 2 diabetes mellitus with diabetic peripheral angiopathy without gangrene; R05.9 Cough, unspecified
CPT/HCPCS: 36415; 71045; 80053; 81001; 83605; 84145; 85025; 85610; 85730; 87502; 93005; 96374; 96375; 99284; J2270; J2405; J3490; J1920

== ENCOUNTER 2024-10-08 13:23 | Outpatient (RCR) | payer MEDICARE, MEDICAID, SELFPAY ==
--- NOTE | 2024-10-08 13:55 | PTNOTE_ITS ---
PT OP Initial Eval Patient Information Outpatient Physical Therapy Treatment Date: 10/08/24 Visit Reasons: Leg pain Medical Diagnosis: BLE Athersclerosis Treatment Dx #1: BLE Weakness Treatment Dx #2: Decondition Start of Care: 10/08/24 Date of Onset: 6 months ago Smoking Status Smoking Status: Current every day smoker (yes) Cessation Counseling Provided: KEYANA was advised that quitting smoking is the single most important factor to protect the health of themselves and their family. Discussed the benefits of quitting smoking with patient. Encouraged patient to quit smoking and provided Cessation assistance materials and resources. Tobacco Use: Cigarette Years smoked: 20 Are you interested in quitting?: No Would you like additional Smoking Cessation Counseling?: No Initial Assessment Subjective: Pt is a 74 y/o female reports of bilateral LE weakness and decondition. Pt has been fallen more often lately. 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 Pt has limitation with balance, uneven surfaces, walking, chores, self care, and recreational activities. Objective: BLE AROM: all motions are WFL BLE MMTs L: grossly 3/5 R: grossly 3+/5 Sit-Stand Test (with use of hands on walker): 10 reps Assessment: Pt demonstrate BLE weakness and decondition leading to difficulty with ADLs. Pt will benefit from physical therapy to increase mobility, strength, and work on endurance Short Term and Mcfp Goals 1) Increase BLE AROM WNL in 6 wks to be able to perform chores 2) Increase BLE MMTs grossly 4-/5 in 6 wks to be able to walk more than 30 mins 3) Increase sit to stand to 14 reps in 6 wks to improve LE endurance to be able to perform recreational activities 4) Indep with HEP Treatment Plan 1) Manual Therapy 2) Therapeutic Activities 3) Therapeutic Exercises 4) Gait Training 5) Balance Training Frequency and Duration: 2 x wk for 6 wks Certification Dates: 10/08/24 to Procedure Charges OP PT Eval Mod Complex 30 minutes: Yes
== END 2024-10-08 23:59 | disposition home or self-care (01) ==
LOC: CPTX 13:23
PROVIDERS: PCP Surgery Vascular Surgery; Referring Provider Surgery Vascular Surgery; Visit Provider Surgery Vascular Surgery
DX: R53.1 Weakness (principal); R26.2 Difficulty in walking, not elsewhere classified; R26.89 Other abnormalities of gait and mobility; I70.203 Unspecified atherosclerosis of native arteries of extremities, bilateral legs
CPT/HCPCS: 97162

== ENCOUNTER 2024-11-04 09:30 | Outpatient (RCR) | payer MEDICARE, MEDICAID, SELFPAY ==
--- NOTE | 2024-10-14 10:24 | PT.ODAYNRPT ---
PT Outpatient Daily Note OP Daily Note Outpatient Physical Therapy Treatment Date: 10/14/24 Visit Reasons: Leg pain Subjective: Pt reports her legs feel weak and wobbly . Pt mentioned that she uses stationary pedals bike at home but can only use it for ~10 minutes, after using it she has a hard time getting around from how tired her legs are. Objective: Please see flow sheet for ther ex list. Assessment: Interventions given with rest breaks in betewen exercise, pt has poor muscle endurance. Plan: Continue with POC. Length of Time (minutes) of Treatment: 30 Minutes HEEL BOOM OPERATOR Service Modifier Method I: Divide the number of min of care provided by the HEEL BOOM OPERATOR/SENIOR DIRECTOR MARKETING by the total min of care provided then multiply by 100. If greater than 11 percent modifier is required. Method II: Divide the total time of care provided to patient by 10 (round to the nearest whole number) and add 1 min. to set the minimum time requirement. If treatment total was 60 min., then 10% of 6 min PT CQ modifier applied: CQ Modifier applied Procedure Charges Therapeutic Exercise 30 minutes: Yes
--- NOTE | 2024-10-20 10:27 | PT.ODAYNRPT ---
PT Outpatient Daily Note OP Daily Note Outpatient Physical Therapy Treatment Date: 10/20/24 Visit Reasons: Leg pain Subjective: Pt's legs feels about the same. The legs get tired and weak with activities. Objective: Please see flow chart for list of ther ex performed Assessment: able to increase side step to 1 more lap, however, reports of fatigue post exercise Plan: Continue with PT Length of Time (minutes) of Treatment: 30 Minutes Procedure Charges Therapeutic Exercise 30 minutes: Yes
--- NOTE | 2024-10-26 10:21 | PT.ODAYNRPT ---
PT Outpatient Daily Note OP Daily Note Outpatient Physical Therapy Treatment Date: 10/26/24 Visit Reasons: Leg pain Subjective: Pt reports feeling tired today. Pt has been trying to use stationary bike at home ~15 minutes 2x a day. Pt shared the day when she uses bike her legs get really tired, weak and shaky. Objective: Please see flow sheet for ther ex list. Assessment: Interventions given alternating sitting and standing to maximize pt participation. Plan: Continue with POC. Length of Time (minutes) of Treatment: 30 Minutes ELECTRONICS PRODUCTION SUPERVISOR Service Modifier Method I: Divide the number of min of care provided by the ELECTRONICS PRODUCTION SUPERVISOR/GROUNDS MAINTENANCE WORKER by the total min of care provided then multiply by 100. If greater than 11 percent modifier is required. Method II: Divide the total time of care provided to patient by 10 (round to the nearest whole number) and add 1 min. to set the minimum time requirement. If treatment total was 60 min., then 10% of 6 min PT CQ modifier applied: CQ Modifier applied Procedure Charges Therapeutic Exercise 30 minutes: Yes
--- NOTE | 2024-10-28 10:25 | PTNOTE_ITS ---
PT Outpatient Daily Note OP Daily Note Outpatient Physical Therapy Treatment Date: 10/28/24 Visit Reasons: Leg pain Subjective: Pt reports she has less pain and not as tired compared to lst session. Pt continues to use stationary bike at home but just paces herself to not over do it. Objective: Please see flow sheet for ther ex list. Assessment: Pt demonstrates improved tolerance with interventions today. Plan: Continue with pOC. Length of Time (minutes) of Treatment: 30 Minutes GENERAL UTILITY MACHINE OPERATOR Service Modifier Method I: Divide the number of min of care provided by the GENERAL UTILITY MACHINE OPERATOR/JOLYNN by the total min of care provided then multiply by 100. If greater than 11 percent modifier is required. Method II: Divide the total time of care provided to patient by 10 (round to the nearest whole number) and add 1 min. to set the minimum time requirement. If treatment total was 60 min., then 10% of 6 min PT CQ modifier applied: CQ Modifier applied Procedure Charges Therapeutic Exercise 30 minutes: Yes
--- NOTE | 2024-11-04 16:14 | PT.ODS1RPT ---
PT OP Progress/Discharge Note Date of Service: 11/04/24 Progress Note/DC Note Progress Note/Discharge Note: DC Note Patient Information Visit Reasons: Leg pain Medical Diagnosis: BLE Athersclerosis Treatment Dx #1: BLE Weakness Service Continue Service or Discharge: Discharge Discharge Date: 11/04/24 Status Subjective: Pt's legs are about the same and continues to feel weakness. Pt mentioned she's falling more lately due to her legs. Pt continue to have limitation with walking, standing, chores, balance, and performing recreational activities. Objective: BLE AROM: all motions are WFL BLE MMTs: grossly 3+/5 Sit-Stand Test: 9 reps Assessment: Pt demonstrate functional BLE mobility and strength, however, continues to have limitation with ADLs. Pt will no longer benefit from physical therapy due to plateau towards goals. Pt was instructed on HEP last session and educated to continue exercises to maintain overall mobility. Pt performed all exercises safely, thank you for your referrals. Plan: D/C home with HEP and follow up with MD Procedure Charges Therapeutic Exercise 30 minutes: Yes
== END 2024-11-05 23:59 | disposition home or self-care (01) ==
LOC: CPTX 09:30
PROVIDERS: PCP Surgery Vascular Surgery; Referring Provider Surgery Vascular Surgery; Visit Provider Surgery Vascular Surgery
DX: R53.1 Weakness (principal); R26.2 Difficulty in walking, not elsewhere classified; R26.89 Other abnormalities of gait and mobility; I70.203 Unspecified atherosclerosis of native arteries of extremities, bilateral legs
CPT/HCPCS: 97110